=== PATIENT | female | born 1990 | race Two or more races ===

== ENCOUNTER 2024-05-28 11:23 | Outpatient (CLI) | payer OTHER | END 2024-05-28 11:24 | disposition home or self-care (01) | LOC: PRENATAL 11:23 | PROVIDERS: ATTEND Obstetrics & Gynecology Maternal & Fetal Medicine | DX: O35.9XX0 Maternal care for (suspected) fetal abnormality and damage, unspecified, not applicable or unspecified (principal); O35.3XX0 Maternal care for (suspected) damage to fetus from viral disease in mother, not applicable or unspecified; O44.02 Complete placenta previa NOS or without hemorrhage, second trimester; Z3A.20 20 weeks gestation of pregnancy ==

== ENCOUNTER 2024-08-22 11:09 | Outpatient (CLI) | payer OTHER | END 2024-08-22 11:10 | disposition home or self-care (01) | LOC: PRENATAL 11:09 | PROVIDERS: ATTEND Obstetrics & Gynecology Maternal & Fetal Medicine | DX: O26.849 Uterine size-date discrepancy, unspecified trimester (principal); O36.8199 Decreased fetal movements, unspecified trimester, other fetus; Z3A.34 34 weeks gestation of pregnancy ==

== ENCOUNTER 2024-09-03 22:41 | Inpatient (IN) | payer OTHER ==
[~2024-09-03] VITALS: Ht 172.7 cm; Wt 107.5 kg
[2024-09-03 23:00] VITALS: BP 121/82
[2024-09-04] MEDS ORDERED: SODIUM CHLORIDE 0.45 % 1,000 ML IV SCH (02:30)
[2024-09-04 02:39] LABS: URINE APPEARANCE Cloudy; URINE BILIRRUBIN Negative (NEGATIVE); URINE BLOOD Negative; URINE COLOR Yellow; URINE GLUCOSE Negative (NEGATIVE); URINE KETONE Trace (NEGATIVE); URINE LEUKOCYTE Trace; URINE NITRATE Negative; URINE PROTEIN 30 (NEGATIVE)
[2024-09-04 02:42] LABS: URINE BACTERIA 3837.8 uL (0.0-1933); URINE EPITHELIAL CELLS 127.3 uL (0.0-38.8); URINE RBC 10.2 uL (0.0-20.8); URINE WBC 63.5 uL (0.0-23.2)
[2024-09-04] MEDS ORDERED: BETAMETHASONE ACETATE,SOD PHOS 30 MG/5 ML ML IM ONE (02:45)
[2024-09-04 02:50] LABS: HEMATOCRIT 37.6 % (36.0-45.00); MEAN CELL VOLUME 84.2 fL (80.00-100.00); MEAN CORPUSCULAR HEMOGLOBIN 26.9 pg (27.00-32.0); MEAN CORPUSCULAR HGB CONC 31.9 g/dl (32.0-36.0); PLATELET COUNT 239 K/uL (150-450); RED BLOOD COUNT 4.47 M/uL (4.00-6.00); RED CELL DISTRIBUTION WIDTH 15.5 % (11.5-14.5)
[2024-09-04 03:24] VITALS: BP 114/77
[2024-09-04 03:40] LABS: BILIRUBIN TOTAL 0.28 mg/dL (0.3-1.2); CALCIUM 9.3 mg/dL (8.5-10.1); CREATININE SERUM 0.58 mg/dL (0.55-1.02); GFR 119.72; GLOBULINA 3.8 G/DL (2.4-3.5); POTASSIUM 4.27 mEq/L (3.5-5.1); TOTAL PROTEIN 6.8 gm/dL (6.4-8.2)
[2024-09-04 03:50] LABS: INR 0.95; PARTIAL THROMBOPLASTIN TIME 26.4 SECONDS (22.0-34.0); PROTHROMBIN TIME 10.4 SECONDS (9.0-11.5)
[2024-09-04 05:03] LABS: URINE CAST 1.22 uL (0.0-1.40)
[2024-09-04 05:04] LABS: URINE CRYSTALS FEW /HPF
[2024-09-04 06:43] VITALS: BP 135/78; O2SAT 98
[2024-09-04] MEDS ORDERED: PRENATAL TABLE1 EAC1 PO (07:42)
[2024-09-04] MEDS ORDERED: ZOFRAN8 MG PO (07:42)
[2024-09-04] MEDS ORDERED: ACETAMINOPHEN 500 MG GEL..CAP PO PRN (07:45)
[2024-09-04 12:00] VITALS: BP 127/82; O2SAT 97
[2024-09-04 16:10] VITALS: BP 116/75
[2024-09-04 20:41] VITALS: BP 108/71
[2024-09-04 23:35] LABS: URINE PROT QUANT 24HR 22.5 MG/DL
[2024-09-04 23:36] LABS: URINE PROT QUANT 24 HR 326.25 MG/24HR (42-225)
[2024-09-05] VITALS (7 sets, daily range): BP systolic 108–129; BP diastolic 68–80; O2SAT 98–99
[2024-09-05] MEDS ORDERED: BUTALB/ACETAMINOPHEN/CAFFEINE 1 TAB TABLET PO PRN (01:45)
[2024-09-05] MEDS ORDERED: BETAMETHASONE ACETATE,SOD PHOS 30 MG/5 ML ML IM ONE (02:45)
[2024-09-05] MEDS ORDERED: CEFAZOLIN SODIUM 1,000 MG VIAL IV SCH (17:00)
[2024-09-06 01:21] VITALS: BP 130/74
[2024-09-06 06:51] LABS: URINE APPEARANCE Clear; URINE BILIRRUBIN Negative (NEGATIVE); URINE BLOOD Negative; URINE COLOR Yellow; URINE GLUCOSE Negative (NEGATIVE); URINE KETONE Negative (NEGATIVE); URINE LEUKOCYTE Negative; URINE NITRATE Negative; URINE PROTEIN Negative (NEGATIVE); URINE UROBILINOGEN 0.2 E.U./dl
[2024-09-06 06:52] LABS: HEMATOCRIT 32.1 % (36.0-45.00); HEMOGLOBIN 10.8 g/dL (12.0-15.00); MEAN CELL VOLUME 84.6 fL (80.00-100.00); MEAN CORPUSCULAR HEMOGLOBIN 28.4 pg (27.00-32.0); MEAN CORPUSCULAR HGB CONC 33.5 g/dl (32.0-36.0); PLATELET COUNT 208 K/uL (150-450); RED CELL DISTRIBUTION WIDTH 15.2 % (11.5-14.5)
[2024-09-06 06:52] LABS: URINE BACTERIA 88.1 uL (0.0-1933); URINE EPITHELIAL CELLS 8.6 uL (0.0-38.8); URINE RBC 8.8 uL (0.0-20.8); URINE WBC 2.4 uL (0.0-23.2)
[2024-09-06 07:33] LABS: ALT/SGPT 10 U/L (12-78); AST/SGOT 8 U/L (15-37)
[2024-09-06 09:40] VITALS: BP 133/84
[2024-09-06 16:17] VITALS: BP 136/70
[2024-09-07] VITALS: BP 108/63
[2024-09-07 10:54] VITALS: BP 137/81; BP 151/86
[2024-09-07 17:06] VITALS: BP 122/81
[2024-09-08 01:00] VITALS: BP 125/78
[2024-09-08 08:00] VITALS: BP 136/88
[2024-09-08 10:07] LABS: HEMATOCRIT 34.6 % (36.0-45.00); HEMOGLOBIN 11.7 g/dL (12.0-15.00); MEAN CORPUSCULAR HGB CONC 33.7 g/dl (32.0-36.0); PLATELET COUNT 207 K/uL (150-450); RED BLOOD COUNT 4.17 M/uL (4.00-6.00); RED CELL DISTRIBUTION WIDTH 15.5 % (11.5-14.5)
[2024-09-08 10:27] LABS: ALT/SGPT 12 U/L (12-78); AST/SGOT 9 U/L (15-37)
[2024-09-08 17:20] VITALS: BP 125/90
[2024-09-08 21:11] VITALS: BP 136/85
[2024-09-09] VITALS: BP 114/72
[2024-09-09 07:14] LABS: HEMATOCRIT 36.5 % (36.0-45.00); HEMOGLOBIN 11.7 g/dL (12.0-15.00); MEAN CELL VOLUME 84.7 fL (80.00-100.00); MEAN CORPUSCULAR HEMOGLOBIN 27.1 pg (27.00-32.0); PLATELET COUNT 218 K/uL (150-450); RED BLOOD COUNT 4.31 M/uL (4.00-6.00); RED CELL DISTRIBUTION WIDTH 15.4 % (11.5-14.5)
[2024-09-09 08:02] LABS: ALT/SGPT 13 U/L (12-78); AST/SGOT 11 U/L (15-37)
[2024-09-09 08:29] LABS: PH,URINE 6.5 (5.0-8.0); URINE APPEARANCE Clear; URINE BILIRRUBIN Negative (NEGATIVE); URINE BLOOD Negative; URINE COLOR Yellow; URINE GLUCOSE Negative (NEGATIVE); URINE KETONE Negative (NEGATIVE); URINE LEUKOCYTE Trace; URINE NITRATE Negative; URINE PROTEIN Negative (NEGATIVE); URINE UROBILINOGEN 0.2 E.U./dl
[2024-09-09 08:32] VITALS: BP 126/86
[2024-09-09 08:32] LABS: URINE BACTERIA 49.1 uL (0.0-1933); URINE EPITHELIAL CELLS 41.7 uL (0.0-38.8); URINE RBC 3.2 uL (0.0-20.8); URINE WBC 6.1 uL (0.0-23.2)
[2024-09-09 16:39] VITALS: BP 133/83
== END 2024-09-09 19:59 | disposition home or self-care (01) | DRG 833 ==
LOC: OBS/DEL 22:41 → LDR 09-05 01:46 → OB/GYN 09-05 23:14
PROVIDERS: ADMIT Obstetrics & Gynecology; ATTEND Obstetrics & Gynecology
PROC: 4A1HXCZ Monitoring of Products of Conception, Cardiac Rate, External Approach (ICD-10-PCS; principal; 2024-09-05)
DX: O13.3 Gestational [pregnancy-induced] hypertension without significant proteinuria, third trimester (principal); Z3A.35 35 weeks gestation of pregnancy; Z20.822 Contact with and (suspected) exposure to COVID-19

== ENCOUNTER 2024-09-17 19:59 | Outpatient (CLI) | payer OTHER ==
[~2024-09-17] VITALS: Ht 172.7 cm; Wt 103.9 kg
[~2024-09-17 19:59] MED LIST: PRENATAL TABLE1 EAC1 PO; ZOFRAN8 MG PO
[2024-09-17 20:46] VITALS: BP 123/84
[2024-09-17] MEDS ORDERED: SODIUM CHLORIDE 0.45 % 1,000 ML IV SCH (22:15)
[2024-09-17 23:05] LABS: URINE APPEARANCE Clear; URINE BILIRRUBIN Negative (NEGATIVE); URINE BLOOD Negative; URINE COLOR Yellow; URINE GLUCOSE Negative (NEGATIVE); URINE KETONE Trace (NEGATIVE); URINE LEUKOCYTE Trace; URINE NITRATE Negative; URINE PROTEIN 30 (NEGATIVE); URINE UROBILINOGEN 0.2 E.U./dl
[2024-09-17 23:09] LABS: URINE BACTERIA 962.5 uL (0.0-1933); URINE EPITHELIAL CELLS 66.9 uL (0.0-38.8); URINE RBC 19.6 uL (0.0-20.8); URINE WBC 12.5 uL (0.0-23.2)
[2024-09-17 23:11] LABS: HEMATOCRIT 37.3 % (36.0-45.00); HEMOGLOBIN 12.5 g/dL (12.0-15.00); MEAN CELL VOLUME 83.6 fL (80.00-100.00); MEAN CORPUSCULAR HGB CONC 33.5 g/dl (32.0-36.0); PLATELET COUNT 221 K/uL (150-450); RED BLOOD COUNT 4.46 M/uL (4.00-6.00); RED CELL DISTRIBUTION WIDTH 15.8 % (11.5-14.5)
[2024-09-17 23:23] VITALS: BP 111/73
[2024-09-17 23:35] LABS: INR 0.95; PARTIAL THROMBOPLASTIN TIME 27.6 SECONDS (22.0-34.0); PROTHROMBIN TIME 10.4 SECONDS (9.0-11.5)
[2024-09-17 23:39] LABS: ALBUMIN 3.2 gm/dL (3.4-5.0); BILIRUBIN TOTAL 0.34 mg/dL (0.3-1.2); CALCIUM 9.4 mg/dL (8.5-10.1); CREATININE SERUM 0.76 mg/dL (0.55-1.02); GFR 87.64; GLOBULINA 3.9 G/DL (2.4-3.5); POTASSIUM 4.55 mEq/L (3.5-5.1); TOTAL PROTEIN 7.1 gm/dL (6.4-8.2)
[2024-09-18 00:15] LABS: URINE CRYSTALS MODERATE /HPF
[2024-09-18 03:04] VITALS: BP 110/76
[2024-09-18 06:19] VITALS: BP 124/81; O2SAT 98
[2024-09-18 12:00] VITALS: BP 120/74
[2024-09-18 15:40] VITALS: BP 125/81
== END 2024-09-18 13:48 | disposition home or self-care (01) ==
LOC: OBS/DEL 19:59
PROVIDERS: ATTEND Obstetrics & Gynecology
DX: O26.893 Other specified pregnancy related conditions, third trimester (principal); Z3A.36 36 weeks gestation of pregnancy

== ENCOUNTER 2024-09-24 15:48 | Inpatient (IN) | payer OTHER ==
[~2024-09-24] VITALS: Ht 172.7 cm; Wt 2.7 kg
[2024-09-24 16:30] VITALS: BP 118/72
[2024-09-24 18:04] LABS: HEMATOCRIT 37.1 % (36.0-45.00); HEMOGLOBIN 12.5 g/dL (12.0-15.00); MEAN CELL VOLUME 83.1 fL (80.00-100.00); MEAN CORPUSCULAR HEMOGLOBIN 27.9 pg (27.00-32.0); MEAN CORPUSCULAR HGB CONC 33.6 g/dl (32.0-36.0); PLATELET COUNT 231 K/uL (150-450); RED BLOOD COUNT 4.46 M/uL (4.00-6.00); RED CELL DISTRIBUTION WIDTH 15.6 % (11.5-14.5); URINE BACTERIA 1257.3 uL (0.0-1933); URINE EPITHELIAL CELLS 44.3 uL (0.0-38.8); URINE RBC 2.1 uL (0.0-20.8); URINE WBC 23.3 uL (0.0-23.2)
[2024-09-24 18:11] LABS: URINE APPEARANCE Clear; URINE BILIRRUBIN Negative (NEGATIVE); URINE BLOOD Negative; URINE COLOR Dark Yellow; URINE GLUCOSE Negative (NEGATIVE); URINE LEUKOCYTE Trace; URINE NITRATE Negative; URINE PROTEIN 30 (NEGATIVE); URINE UROBILINOGEN 0.2 E.U./dl
[2024-09-24 18:12] LABS: URINE CAST 1.06 uL (0.0-1.40); URINE KETONE 40 (NEGATIVE)
[2024-09-24] MEDS ORDERED: SODIUM CHLORIDE 0.45 % 1,000 ML IV SCH (18:30)
[2024-09-24 18:45] LABS: INR 0.97; PARTIAL THROMBOPLASTIN TIME 27.2 SECONDS (22.0-34.0); PROTHROMBIN TIME 10.6 SECONDS (9.0-11.5)
[2024-09-24 18:47] LABS: BILIRUBIN TOTAL 0.26 mg/dL (0.3-1.2); CALCIUM 9.6 mg/dL (8.5-10.1); CREATININE SERUM 0.72 mg/dL (0.55-1.02); GFR 93.29; GLOBULINA 4.2 G/DL (2.4-3.5); POTASSIUM 4.21 mEq/L (3.5-5.1); TOTAL PROTEIN 7.2 gm/dL (6.4-8.2)
[2024-09-24 19:36] VITALS: BP 109/73
[2024-09-24] MEDS ORDERED: GUAIFENESIN 600 MG TABLET.SA PO SCH (22:13)
[2024-09-24] MEDS ORDERED: LORATADINE 10 MG TABLET PO SCH (22:13)
[2024-09-25 00:12] VITALS: BP 113/73
[2024-09-25 03:15] VITALS: BP 116/74
[2024-09-25 07:19] VITALS: BP 118/82
[2024-09-25 11:07] VITALS: BP 123/84
[2024-09-25] MEDS ORDERED: CEFAZOLIN SODIUM 1,000 MG VIAL IV ONE (15:30)
[2024-09-25] MEDS ORDERED: ERYTHROMYCIN BASE OPHT 1GM EACH TUBE OP ONE (15:30)
[2024-09-25] MEDS ORDERED: OXYTOCIN 20 UNITS/1000ML RL PIGGYBAG IV ONE (15:30)
[2024-09-25] MEDS ORDERED: MORPHINE SULFATE 4 MG/ML VIAL IV ONE ×2 (16:30→17:00)
[2024-09-25] MEDS ORDERED: KETOROLAC TROMETHAMINE 60 MG VIAL IM STA (16:43)
[2024-09-25] MEDS ORDERED: PROMETHAZINE HCL 25 MG/ML AMPUL IM PRN (16:45)
[2024-09-25] MEDS ORDERED: MEPERIDINE HCL/PF 50 MG/ML VIAL IM PRN (16:45)
[2024-09-25] MEDS ORDERED: RINGERS SOLUTION,LACTATED 1,000 ML IV SCH (16:45)
[2024-09-25] MEDS ORDERED: OXYTOCIN 1,000 ML IV SCH (16:45)
[2024-09-25] MEDS ORDERED: CHLORHEXIDINE GLUCONATE 120 ML BOTTLE TOP SCH (16:45)
[2024-09-25] MEDS ORDERED: KETOROLAC TROMETHAMINE 60 MG VIAL IM ONE (18:00)
[2024-09-25 20:06] LABS: HEMATOCRIT 29.9 % (36.0-45.00); MEAN CELL VOLUME 84.4 fL (80.00-100.00); MEAN CORPUSCULAR HEMOGLOBIN 27.9 pg (27.00-32.0); PLATELET COUNT 199 K/uL (150-450); RED BLOOD COUNT 3.54 M/uL (4.00-6.00); RED CELL DISTRIBUTION WIDTH 15.5 % (11.5-14.5)
[2024-09-25 20:18] LABS: HEMOGLOBIN 9.9 g/dL (12.0-15.00)
[2024-09-25 20:32] VITALS: BP 141/92
[2024-09-26] VITALS: BP 122/78
[2024-09-26 08:36] VITALS: BP 140/80
[2024-09-26] MEDS ORDERED: OxyCODONE HCL/APAP UD (PERCOCET) PO PRN (09:00)
[2024-09-26 16:39] VITALS: BP 104/68
[2024-09-26] MEDS ORDERED: FERROUS SULFATE 325 MG TABLET.EC PO SCH (19:51)
[2024-09-26] MEDS ORDERED: PNV,CALCIUM 72/IRON/FOLIC ACID 1 TAB TABLET PO SCH (19:51)
[2024-09-27 01:45] VITALS: BP 127/80
[2024-09-27] MEDS ORDERED: IBUPROFEN800 MG PO (07:15)
[2024-09-27 08:44] VITALS: BP 121/66
== END 2024-09-27 14:23 | disposition home or self-care (01) | DRG 788 ==
LOC: LDR 15:48 → O/R 09-25 14:51 → OB/GYN 09-25 16:29
PROVIDERS: ADMIT Obstetrics & Gynecology; ATTEND Obstetrics & Gynecology
PROC: 4A1HXCZ Monitoring of Products of Conception, Cardiac Rate, External Approach (ICD-10-PCS; 2024-09-24)
PROC: 10D00Z1 Extraction of Products of Conception, Low, Open Approach (ICD-10-PCS; principal; 2024-09-25 15:30)
DX: O13.4 Gestational [pregnancy-induced] hypertension without significant proteinuria, complicating childbirth (principal); Z3A.37 37 weeks gestation of pregnancy; Z37.0 Single live birth; Z20.822 Contact with and (suspected) exposure to COVID-19